=== PATIENT | female | born 1995 | race Caucasian/White ===

== ENCOUNTER 2017-11-05 12:39 | Outpatient (CLI) | payer OTHER ==
[2017-11-05 14:15] LABS: ADD MAN DIFF? NO
[2017-11-05 14:17] LABS: ADD UMIC YES; UR ASCORBIC ACID NEGATIVE (NEGATIVE); UR BACTERIA FEW /HPF (NONE SEEN); UR BILIRUBIN (Dip) NEGATIVE (NEGATIVE); UR BLOOD (Dip) 3+ mg/dL (NEGATIVE); UR CLARITY CLOUDY (CLEAR); UR COLOR YELLOW (YELLOW); UR GLUCOSE (Dip) 1+ mg/dL (NEGATIVE); UR KETONES (Dip) NEGATIVE (NEGATIVE); UR LEUKOCYTE ESTERASE (Dip) 3+ Leu/ul (NEGATIVE); UR MUCUS FEW /HPF (NONE SEEN); UR NITRITE (Dip) NEGATIVE (NEGATIVE); UR RBC 1 /HPF (0-5); UR SPECIFIC GRAVITY (Dip) 1.015 (1.003-1.030); UR SQUAMOUS EPITHELIAL CELL MANY /HPF (FEW); UR TOTAL PROTEIN (Dip) NEGATIVE (NEGATIVE); UR UROBILINOGEN (Dip) NEGATIVE (NEGATIVE); UR WBC 45 /HPF (0-5)
[2017-11-05 14:18] LABS: WHITE BLOOD COUNT 15.1 10^3/ul (4.8-10.8)
[2017-11-05 14:18] LABS: BASOPHILS % 0.3 % (0.0-2.0); EOSINOPHILS # 0.1 10^3/ul (0.0-0.5); EOSINOPHILS % 0.7 % (0.0-7.0); HEMATOCRIT 33.8 % (37.0-47.0); HEMOGLOBIN 11.1 g/dl (12.0-16.0); LYMPHOCYTES # 1.5 10^3/ul (0.8-2.9); MEAN CORPUSCULAR HEMOGLOBIN 28.4 pg (29.0-33.0); MEAN CORPUSCULAR HGB CONC 32.8 g/dl (32.0-37.0); MEAN CORPUSCULAR VOLUME 86.4 fl (82.0-101.0); MEAN PLATELET VOLUME 9.8 fl (7.4-10.4); MONOCYTE # 1.2 10^3/ul (0.3-0.9); MONOCYTES % 8.2 % (0.0-11.0); NEUTROPHILS % 79.9 % (39.0-77.0); PLATELET COUNT 319 10^3/UL (140-415); RED BLOOD COUNT 3.91 10^6/ul (4.20-5.40); RED CELL DISTRIBUTION WIDTH 12.7 % (11.5-14.5)
[2017-11-05 14:42] LABS: ALANINE AMINOTRANSFERASE 18 IU/L (13-69); ALBUMIN 3.3 g/dl (3.3-4.9); ALBUMIN/GLOBULIN RATIO 0.89; ALKALINE PHOSPHATASE 126 IU/L (42-121); ANION GAP 12 (8-16); ASPARTATE AMINO TRANSFERASE 16 IU/L (15-46); BILIRUBIN,INDIRECT 0.2 mg/dl (0-1.1); BILIRUBIN,TOTAL 0.2 mg/dl (0.2-1.3); BLOOD UREA NITROGEN 11 mg/dl (7-20); CALCIUM 9.2 mg/dl (8.4-10.2); CARBON DIOXIDE 23 mmol/L (21-31); CHLORIDE 106 mmol/L (97-110); GLUCOSE 80 mg/dl (70-220); POTASSIUM 4.2 mmol/L (3.5-5.1); SODIUM 137 mmol/L (135-144); URIC ACID 3.4 mg/dl (3.1-7.9)
[2017-11-05 14:43] LABS: INR 0.98; PROTIME 13.1 Sec (11.9-14.9)
[2017-11-05 14:44] LABS: PARTIAL THROMBOPLASTIN TIME 31.5 Sec (25.0-35.0)
== END 2017-11-05 19:20 | disposition home or self-care (01) ==
LOC: OBT 12:39 → L-D 12:41 → OBT 19:20
DX: O13.3 Gestational [pregnancy-induced] hypertension without significant proteinuria, third trimester (principal); Z3A.36 36 weeks gestation of pregnancy
CPT/HCPCS: 76815; 76818; 80053; 80076; 81001; 84560; 85025; 85384; 85610; 85730; 96372

== ENCOUNTER 2017-11-08 07:13 | Inpatient (IN) | payer OTHER ==
[2017-11-08] MEDS ORDERED: CARBOPROST 250 MCG INJ IM (08:00)
[2017-11-08] MEDS ORDERED: BUTORPHANOL 2 MG INJ IV (08:00)
[2017-11-08] MEDS ORDERED: METHYLERGONOVINE 0.2 MG INJ IM (08:00)
[2017-11-08] MEDS ORDERED: IBUPROFEN 600 MG TAB PO (08:00)
[2017-11-08] MEDS ORDERED: LIDOCAINE 1% (MPF) 30 ML INJ INJ (08:00)
[2017-11-08] MEDS ORDERED: MISOPROSTOL 200 MCG TAB PR (08:00)
[2017-11-08] MEDS ORDERED: OXYTOCIN 30 UNITS/LR 500 ML IV ×3 (08:00→13:30)
[2017-11-08] MEDS: LACTATED RINGER'S 1,000 ML IV ×4 (08:09→23:22)
[2017-11-08 09:24] LABS: ADD MAN DIFF? NO
[2017-11-08 09:28] LABS: BASOPHILS % 0.2 % (0.0-2.0); EOSINOPHILS # 0.1 10^3/ul (0.0-0.5); EOSINOPHILS % 0.8 % (0.0-7.0); HEMATOCRIT 33.7 % (37.0-47.0); LYMPHOCYTES # 1.5 10^3/ul (0.8-2.9); LYMPHOCYTES % 11.4 % (15.0-51.0); MEAN CORPUSCULAR HEMOGLOBIN 28.6 pg (29.0-33.0); MEAN CORPUSCULAR HGB CONC 32.6 g/dl (32.0-37.0); MEAN CORPUSCULAR VOLUME 87.5 fl (82.0-101.0); MEAN PLATELET VOLUME 9.8 fl (7.4-10.4); MONOCYTES % 7.1 % (0.0-11.0); NEUTROPHIL # 10.7 10^3/ul (1.6-7.5); NEUTROPHILS % 79.4 % (39.0-77.0); PLATELET COUNT 315 10^3/UL (140-415); RED BLOOD COUNT 3.85 10^6/ul (4.20-5.40); RED CELL DISTRIBUTION WIDTH 12.7 % (11.5-14.5)
[2017-11-08 09:28] LABS: WHITE BLOOD COUNT 13.5 10^3/ul (4.8-10.8)
[2017-11-08 09:57] LABS: ALANINE AMINOTRANSFERASE 23 IU/L (13-69); ALBUMIN 3.2 g/dl (3.3-4.9); ALBUMIN/GLOBULIN RATIO 0.88; ALKALINE PHOSPHATASE 125 IU/L (42-121); ANION GAP 14 (8-16); ASPARTATE AMINO TRANSFERASE 17 IU/L (15-46); BILIRUBIN,INDIRECT 0.2 mg/dl (0-1.1); BILIRUBIN,TOTAL 0.2 mg/dl (0.2-1.3); BLOOD UREA NITROGEN 9 mg/dl (7-20); CALCIUM 8.7 mg/dl (8.4-10.2); CARBON DIOXIDE 22 mmol/L (21-31); CHLORIDE 105 mmol/L (97-110); CREATININE 0.57 mg/dl (0.44-1.00); GLUCOSE 116 mg/dl (70-220); POTASSIUM 3.8 mmol/L (3.5-5.1); SODIUM 137 mmol/L (135-144); TOTAL PROTEIN 6.8 g/dl (6.1-8.1); URIC ACID 3.9 mg/dl (3.1-7.9)
[2017-11-08 10:29] LABS: PROTIME 12.2 Sec (11.9-14.9)
[2017-11-08 10:30] LABS: PARTIAL THROMBOPLASTIN TIME 29.9 Sec (25.0-35.0)
[2017-11-08] MEDS: OXYTOCIN 30 UNITS/LR 500 ML IV (11:05)
[2017-11-08 18:37] LABS: RAPID PLASMA REAGIN NONREACTIVE (NR)
[2017-11-08] MEDS ORDERED: NALOXONE (0.4 MG/ML) INJ IV (22:30)
[2017-11-08] MEDS ORDERED: DIPHENHYDRAMINE 50 MG INJ IV (22:30)
[2017-11-08] MEDS ORDERED: ONDANSETRON 4 MG INJ IV (22:30)
[2017-11-08] MEDS ORDERED: FENTAnyl 2MCG/ML-ROPIV 0.2% 100 ML (22:38)
[2017-11-08] MEDS: FENTAnyl 2MCG/ML-ROPIV 0.2% 100 ML BAG EPI (23:50)
[2017-11-09] MEDS: FENTAnyl 2MCG/ML-ROPIV 0.2% 100 ML BAG EPI ×3 (07:10→21:42)
[2017-11-09] MEDS: LACTATED RINGER'S 1,000 ML IV ×3 (07:10→20:05)
[2017-11-09] MEDS ORDERED: ONDANSETRON 4 MG INJ (22:53)
[2017-11-09] MEDS: ONDANSETRON 4 MG INJ IV (22:56)
[2017-11-10] MEDS ORDERED: MINERAL OIL LIGHT 10 ML VIAL TOP (02:30)
[2017-11-10] MEDS ORDERED: CLINDAMYCIN 900 MG/D5W (PMX) 50 ML IVPB (03:17)
[2017-11-10] MEDS: FENTAnyl 2MCG/ML-ROPIV 0.2% 100 ML BAG EPI (03:23)
[2017-11-10] MEDS: CLINDAMYCIN 900 MG/D5W (PMX) 50 ML IV (03:26)
[2017-11-10] MEDS ORDERED: MISOPROSTOL 200 MCG TAB PR ×2 (05:00→08:30)
[2017-11-10] MEDS ORDERED: CEFAZOLIN 2 GM/50 ML (PMX) 50 ML IV (05:00)
[2017-11-10] MEDS ORDERED: CARBOPROST 250 MCG INJ IM ×2 (05:00→08:30)
[2017-11-10] MEDS ORDERED: METHYLERGONOVINE 0.2 MG INJ IM ×2 (05:00→08:30)
[2017-11-10] MEDS ORDERED: OXYTOCIN 30 UNITS/LR 500 ML IV ×3 (05:00→08:30)
[2017-11-10] MEDS ORDERED: LIDOCAINE 1.5%/EPI MPF (SDV) 30 ML VIAL (05:43)
[2017-11-10] MEDS ORDERED: FENTAnyl 50 MCG/ML VIAL (05:43)
[2017-11-10] MEDS ORDERED: NALOXONE (0.4 MG/ML) INJ IV (06:00)
[2017-11-10] MEDS ORDERED: ZOLPIDEM 5 MG TAB PO (06:00)
[2017-11-10] MEDS ORDERED: HYDROmorphONE 0.5 MG/0.5 ML SYG IV ×2 (06:00)
[2017-11-10] MEDS ORDERED: DIPHENHYDRAMINE 50 MG INJ IV (06:00)
[2017-11-10] MEDS ORDERED: ONDANSETRON 4 MG INJ IV (06:00)
[2017-11-10] MEDS ORDERED: MIDAZOLAM 1 MG/ML 2 ML INJ (06:08)
[2017-11-10] MEDS ORDERED: MEPERIDINE 100 MG INJ (06:18)
[2017-11-10] MEDS ORDERED: DEXAMETHASONE 4 MG/ML 1 ML INJ (06:18)
[2017-11-10] MEDS ORDERED: morphine SULFATE/PF (10 MG/10 ML) INJ (06:23)
[2017-11-10] MEDS ORDERED: LABETALOL HCL 20MG INJ (06:34)
[2017-11-10] MEDS ORDERED: LANOLIN 7 GM TUBE TOP (08:30)
[2017-11-10] MEDS ORDERED: OXYCODONE/ACETAMINOPHEN (5/325) TAB PO (08:30)
[2017-11-10] MEDS: KETOROLAC 30 MG INJ IV ×2 (09:17→19:02)
[2017-11-10] MEDS: LACTATED RINGER'S 1,000 ML IV ×2 (10:45→19:02)
[2017-11-10 11:42] LABS: ABNORMAL IP MESSAGE 1; HEMATOCRIT 28.4 % (37.0-47.0); HEMOGLOBIN 9.3 g/dl (12.0-16.0); MEAN CORPUSCULAR HEMOGLOBIN 28.5 pg (29.0-33.0); MEAN CORPUSCULAR HGB CONC 32.7 g/dl (32.0-37.0); MEAN CORPUSCULAR VOLUME 87.1 fl (82.0-101.0); MEAN PLATELET VOLUME 9.6 fl (7.4-10.4); PLATELET COUNT 253 10^3/UL (140-415); RED BLOOD COUNT 3.26 10^6/ul (4.20-5.40); RED CELL DISTRIBUTION WIDTH 12.8 % (11.5-14.5)
[2017-11-10 11:42] LABS: WHITE BLOOD COUNT 29.4 10^3/ul (4.8-10.8)
[2017-11-10 11:45] LABS: POSITIVE DIFF @See below
[2017-11-10 11:46] LABS: ADD MAN DIFF? YES
[2017-11-10 12:01] LABS: INR 1.21; PROTIME 15.5 Sec (11.9-14.9); PT RATIO 1.2
[2017-11-10 12:09] LABS: PARTIAL THROMBOPLASTIN TIME 31.7 Sec (25.0-35.0)
[2017-11-10 12:37] LABS: ANISOCYTOSIS 2+ (0-0); BAND NEUTROPHILS #M 5.5 10^3/ul (0.0-0.6); BAND NEUTROPHILS % (M) 19 % (0-4); LYMPHOCYTES #M 0.2 10^3/ul (0.8-2.9); LYMPHOCYTES % (M) 1 % (15-51); MICROCYTOSIS 2+ (0-0); MONOCYTE #M 0.8 10^3/ul (0.3-0.9); MONOCYTES % (M) 3 % (0-11); PLATELET ESTIMATE NORMAL; POLYCHROMASIA 2+ (0-0); RBC MORPHOLOGY COMMENT @See below; SEG NEUT #M 24.3 10^3/ul (1.6-7.5); SEGMENTED NEUTROPHILS (M) % 77 % (39-77); SMUDGE%M 1 % (0-0); WBC MORPHOLOGY COMMENT @See below
[2017-11-10 14:51] LABS: RAPID PLASMA REAGIN NONREACTIVE (NR)
[2017-11-10] MEDS: SOD CHLORIDE 0.9% IVPB (22:34)
[2017-11-10] MEDS: GENTAMICIN IVPB (22:34)
[2017-11-10] MEDS: CLINDAMYCIN 900 MG/D5W (PMX) 50 ML IVPB (23:51)
[2017-11-11] MEDS: LACTATED RINGER'S 1,000 ML IV ×3 (03:57→16:16)
[2017-11-11] MEDS: KETOROLAC 30 MG INJ IV (05:11)
[2017-11-11] MEDS: CLINDAMYCIN 900 MG/D5W (PMX) 50 ML IVPB ×3 (08:04→22:42)
[2017-11-11 08:31] LABS: ADD MAN DIFF? NO
[2017-11-11 08:41] LABS: ABNORMAL IP MESSAGE 1; BASOPHILS % 0.2 % (0.0-2.0); EOSINOPHILS # 0.1 10^3/ul (0.0-0.5); EOSINOPHILS % 0.3 % (0.0-7.0); HEMATOCRIT 22.8 % (37.0-47.0); HEMOGLOBIN 7.4 g/dl (12.0-16.0); LYMPHOCYTES % 10.4 % (15.0-51.0); MEAN CORPUSCULAR HEMOGLOBIN 28.5 pg (29.0-33.0); MEAN CORPUSCULAR HGB CONC 32.5 g/dl (32.0-37.0); MEAN CORPUSCULAR VOLUME 87.7 fl (82.0-101.0); MEAN PLATELET VOLUME 9.2 fl (7.4-10.4); MONOCYTE # 1.8 10^3/ul (0.3-0.9); MONOCYTES % 9.4 % (0.0-11.0); NEUTROPHIL # 14.7 10^3/ul (1.6-7.5); NEUTROPHILS % 78.1 % (39.0-77.0); PLATELET COUNT 206 10^3/UL (140-415); RED CELL DISTRIBUTION WIDTH 13.1 % (11.5-14.5)
[2017-11-11 08:41] LABS: WHITE BLOOD COUNT 18.9 10^3/ul (4.8-10.8)
[2017-11-11 09:27] LABS: POSITIVE DIFF @See below
[2017-11-11] MEDS: IBUPROFEN 800 MG TAB PO ×2 (14:01→22:00)
[2017-11-11] MEDS: SOD CHLORIDE 0.9% IVPB (21:37)
[2017-11-11] MEDS: GENTAMICIN IVPB (21:37)
[2017-11-11] MEDS: OXYCODONE/ACETAMINOPHEN (5/325) TAB PO (21:55)
[2017-11-12 01:18] LABS: RHOGAM PROFILE 1 1
[2017-11-12] MEDS: OXYCODONE/ACETAMINOPHEN (5/325) TAB PO (05:59)
[2017-11-12] MEDS: CLINDAMYCIN 900 MG/D5W (PMX) 50 ML IVPB ×3 (05:59→22:24)
[2017-11-12] MEDS: IBUPROFEN 800 MG TAB PO ×3 (06:00→22:24)
[2017-11-12] MEDS: LACTATED RINGER'S 1,000 ML IV ×3 (08:16→16:16)
[2017-11-12 09:58] LABS: ADD MAN DIFF? NO
[2017-11-12 10:03] LABS: BASOPHILS % 0.2 % (0.0-2.0); EOSINOPHILS # 0.3 10^3/ul (0.0-0.5); EOSINOPHILS % 1.9 % (0.0-7.0); HEMATOCRIT 23.2 % (37.0-47.0); HEMOGLOBIN 7.5 g/dl (12.0-16.0); LYMPHOCYTES # 1.4 10^3/ul (0.8-2.9); LYMPHOCYTES % 8.8 % (15.0-51.0); MEAN CORPUSCULAR HEMOGLOBIN 28.6 pg (29.0-33.0); MEAN CORPUSCULAR HGB CONC 32.3 g/dl (32.0-37.0); MEAN CORPUSCULAR VOLUME 88.5 fl (82.0-101.0); MEAN PLATELET VOLUME 9.5 fl (7.4-10.4); MONOCYTE # 1.2 10^3/ul (0.3-0.9); MONOCYTES % 7.5 % (0.0-11.0); NEUTROPHIL # 12.5 10^3/ul (1.6-7.5); NEUTROPHILS % 79.7 % (39.0-77.0); PLATELET COUNT 256 10^3/UL (140-415); RED BLOOD COUNT 2.62 10^6/ul (4.20-5.40); RED CELL DISTRIBUTION WIDTH 13.2 % (11.5-14.5)
[2017-11-12 10:03] LABS: WHITE BLOOD COUNT 15.6 10^3/ul (4.8-10.8)
[2017-11-12] MEDS: GENTAMICIN IVPB (21:09)
[2017-11-12] MEDS: SOD CHLORIDE 0.9% IVPB (21:09)
[2017-11-13] MEDS: LACTATED RINGER'S 1,000 ML IV (00:16)
[2017-11-13] MEDS: IBUPROFEN 800 MG TAB PO (06:16)
[2017-11-13] MEDS: CLINDAMYCIN 900 MG/D5W (PMX) 50 ML IVPB (06:17)
[2017-11-13] MEDS ORDERED: DIPHTH/TET/ACEL PERTUSS (ADULT) 0.5 ML VIAL IM* (09:00)
[2017-11-13 15:33] LABS: PATH REVIEW CH
== END 2017-11-13 15:50 | disposition home or self-care (01) | DRG 766 ==
LOC: L-D 07:13 → PP1 11-10 09:31
PROC: 10D00Z1 Extraction of Products of Conception, Low, Open Approach (ICD-10-PCS; principal; 2017-11-10 06:30)
PROC: 3E033VJ Introduction of Other Hormone into Peripheral Vein, Percutaneous Approach (ICD-10-PCS; 2017-11-10 06:30)
DX: O13.4 Gestational [pregnancy-induced] hypertension without significant proteinuria, complicating childbirth (principal); O62.1 Secondary uterine inertia; O77.9 Labor and delivery complicated by fetal stress, unspecified; Z3A.37 37 weeks gestation of pregnancy; Z37.0 Single live birth
CPT/HCPCS: 62319; 76815; 80053; 84560; 85025; 85384; 85610; 85730; 86592; 86850; 86870; 86885; 86900; 86901; 94760; 99464